=== PATIENT | female | born 1980 | race Caucasian/White ===

== ENCOUNTER 2016-10-02 04:12 | Inpatient (IN) | payer OTHER ==
--- NOTE | ~2016-10-02 | PN ---
Unit #: [id number] #: [id number] Patient: DREW SHEPPARD [id number] [facility] [address] [place] [address] [id number] MR#: [id number] NAME: DREW SHEPPARD ROOM: P208 Age: 36 Sex: F Admission Date: 10/02/2016 : 1980 Attending Physician: Mehdi Aiken M.D. Admitting Physician: Mehdi Aiken M.D. Primary Care Physician: Abhi Richardson PROGRESS NOTES DATE OF SERVICE: 10/03/2016 DISCUSSION The patient continues to complain of some anxiety and depression, but is better today. She slept well last night. Has a good appetite. She is alert and fully oriented. Her memory and concentration are intact. Her thought processes are logical with no psychosis. She is equivocal about suicidal ideation today. ASSESSMENT Major depression, substance abuse. PLAN We will continue with new medications and detox protocol, anticipate discharge soon. Dictated by... Abhi Hayden/romina TD: 10/04/2016 01:35 JOB #: [id number] NABIL PROGRESS NOTES Page 1 of 1 X Mehdi Aiken MD PROGRESS NOTE
--- NOTE | ~2016-10-02 | HP ---
Unit #: [id number] #: [id number] Patient: LISSETH SHEPPARD [id number] [place] [address] [id number] MR#: [id number] NAME: LISSETH SHEPPARD ROOM: P208 Age: 36 Sex: F Admission Date: 10/02/2016 : 1980 Attending Physician: Mehdi Aiken M.D. Admitting Physician: Mehdi Aiken M.D. Primary Care Physician: Herrera Samano M.D. HISTORY AND PHYSICAL HISTORY OF PRESENT ILLNESS Lisseth is a 36 year old admitted to [address] [place] [address] because of her continued drug use. She shoots heroin. PAST MEDICAL HISTORY 1. Long history of opioid abuse to include IV heroin 2. Hepatitis C PAST SURGICAL HISTORY Tubal ligation. ALLERGIES No known drug allergies. SOCIAL HISTORY Smokes one pack per day. Denies alcohol. Admits to a long history of opioid abuse to include IV heroin. FAMILY HISTORY Medically noncontributory. REVIEW OF SYSTEMS CONSTITUTIONAL: No fever or chills. HEENT: Denies any sore throat, ear pain or runny nose. CARDIOVASCULAR: Denies chest pain, irregular heart rhythm or palpitations. CHEST: Denies shortness of breath or cough. No hemoptysis. GASTROINTESTINAL: Denies nausea, vomiting, diarrhea or chronic constipation. ENDOCRINE: Denies history of increased thirst or urination. No recent significant weight loss or gain. GENITOURINARY: Denies dysuria, frequency, or hematuria. SKIN: Denies any rashes. HEMATOLOGIC: Denies history of increased bleeding or bruising. MUSCULOSKELETAL: Denies any hot, swollen joints. No generalized muscle pain. NEUROLOGIC: Denies problems with vision or speech. No frequent, severe headaches. No numbness, tingling or weakness in any extremities. Denies loss of bladder or bowel control. CURRENT MEDICATIONS 1. Detox protocol Unit #: [id number] #: [id number] Patient: LISSETH SHEPPARD 2. Celexa 20 mg daily PHYSICAL EXAMINATION GENERAL: Alert, well-nourished, in no apparent distress. VITAL SIGNS: Blood pressure 100/62, heart rate 80, respirations 16, temperature 98.6. WEIGHT: 148 pounds. HEIGHT: 5'6". SKIN: Warm and dry without rash or lesion. HEENT: Normocephalic. TMs not viewed. Oral and nasal passages clear. Conjunctivae clear. Pupils equal, round and reactive to light and accommodation. Extraocular movements intact. NECK: Supple without lymphadenopathy or thyromegaly. HEART: Regular rate and rhythm without murmur. LUNGS: Clear. ABDOMEN: Soft, nontender. : Not done. EXTREMITIES: No evidence of cyanosis, clubbing or edema. Moves all extremities without focal deficit. NEUROLOGICAL: Grossly within normal limits. Cranial Nerves: II: Visual farias are intact. III, IV AND : Extraocular movements are intact. Pupils are equal, round and reactive to light. V: Facial sensation is grossly normal. VII: Facial movements and expression are normal. VIII: Auditory acuity grossly intact. IX, X: Uvula is midline. Phonation is normal. XI: Patient shrugs shoulders and turns head normally. XII: Tongue protrudes in the midline. Sensory and Motor Function: Sensory and motor sensation is grossly normal. Motor: moves all extremities well. Coordination: Gait is normal. Deep Tendon Reflexes: Intact. IMPRESSION Psychiatric admission RECOMMENDATIONS PSYCHIATRIC: Per psychiatrist. MEDICAL: I see no contraindications to participating in facility's activities. MEDICAL PROGNOSIS Good. MEDICAL CONDITION Stable. Dictated by... Ruth Marmolejo PMukundA.-C. for Abhi Chester/maciel TD: 10/02/2016 23:44 JOB #: [id number] Unit #: [id number] #: [id number] Patient: LISSETH SHEPPARD HISTORY AND PHYSICAL Page 1 of 1 X Ruth Marmolejo HISTORY AND PHYSICAL
--- NOTE | ~2016-10-02 | PA ---
Unit #: [id number] #: [id number] Patient: LISSETH SHEPPARD [id number] [place] [address] [id number] MR#: [id number] NAME: LISSETH SHEPPARD ROOM: P208 Age: 36 Sex: F Admission Date: 10/02/2016 : 1980 Date of Assessment: 10/02/2016 Attending Physician: Mehdi Aiken M.D. Admitting Physician: Mehdi Aiken M.D. Primary Care Physician: Herrera Samano M.D. PSYCHIATRIC ASSESSMENT INFORMANTS Patient, reliable; OLOP, reliable. CHIEF COMPLAINT Suicidal ideation and IV heroin use. HISTORY OF PRESENT ILLNESS Lisseth Sheppard is a 36-year-old woman, who reports using 0.5 g of heroin occasionally with benzodiazepines and cocaine today. She had suicidal ideation with a plan to overdose and could not contract for safety. She was admitted for stabilization. PAST PSYCHIATRIC HISTORY Last admission in this facility was in 02/2016. She has also had treatment at [facility] and other outpatient facilities. FAMILY PSYCHIATRIC HISTORY The patient's father was an alcoholic. Her aunt suffered from depression, bipolar disorder, and substance abuse. SOCIAL HISTORY The patient denied any history of childhood abuse or neglect. She is a heterosexual woman with a boyfriend. She has had previous drug charges. She is erratically housed and employed. PAST MEDICAL HISTORY No chronic medical problems. MEDICATIONS None currently. ALLERGIES No known medication allergies. SUBSTANCE USE HISTORY As noted, the patient has a long history of polysubstance dependence, with multiple treatment episodes. MENTAL STATUS EXAMINATION The patient presented as a disheveled woman, who appeared her stated age. She stood 5 feet 6 inches tall, weighed 148 pounds. Vital signs were temperature 98.6, pulse 75, respirations 18, and blood pressure 142/94. Her speech was spontaneous and easily understood. Her musculoskeletal Unit #: [id number] #: [id number] Patient: LISESTH SHEPPARD examination was calm. Her mood was anxious with a congruent affect. She was alert and fully oriented. Her memory and concentration were fair. Her thought processes were goal directed with no active psychosis. She now denied suicidal ideation, intent, or plan. Insight and judgment, fair. Fund of knowledge and abstraction, fair. ASSETS AND LIABILITIES The patient knows local resources and presents voluntarily for treatment. Liabilities include difficulty maintaining sobriety, ongoing issues with depression. ADMITTING DIAGNOSES AXIS I: 1. Opioid dependence with withdrawal, uncomplicated, F11.23. 2. Major depressive disorder. AXIS II: No diagnosis. AXIS III: Opioid withdrawal. AXIS IV: AXIS V: PSYCHIATRIC PLAN The patient was admitted and placed on suicide precautions and the opioid detox protocol. Citalopram 20 mg daily for depression will be provided with trazodone 50 mg at bedtime as needed for insomnia. She will enroll in dual diagnosis groups and activities and physical examination and laboratory studies will be ordered and reviewed. TREATMENT GOALS Resolution of SI, improvement in insight, and improvement in coping skills. DISCHARGE PLAN Follow up with community mental health and primary care physician. ESTIMATED LENGTH OF STAY 5 days. Dictated by... Mehdi Aiken M.D. LILY/romina TD: 10/09/2016 03:09 JOB #: [id number] PSYCHIATRIC ASSESSMENT Page 1 of 1 X Mehdi Aiken MD PSYCHIATRIC ASSESSMENT
--- NOTE | ~2016-10-02 | DS ---
Unit #: [id number] #: [id number] Patient: LISSETH SHEPPARD [id number] [facility] [address] [place] [address] [id number] MR#: [id number] NAME: LISSETH SHEPPARD ROOM: P208 Age: 36 Sex: F Admission Date: 10/02/2016 : 1980 Discharge Date: 10/04/2016 Attending Physician: Mehdi Aiken M.D. Primary Care Physician: Herrera Samano M.D. DISCHARGE SUMMARY REASON FOR ADMISSION Lisseth is a 36-year-old woman who came in with complaints of depression, anxiety, and the use of benzodiazepines, heroin, and cocaine. She cannot contract for safety and was admitted for stabilization. HOSPITAL COURSE The patient was admitted and placed on the opioid detox protocol and suicide precautions. Citalopram 20 mg daily for depression with trazodone 50 mg at bedtime was added. She tolerated these medications well with good sleep and reduced detox symptomatology. The following day, she was able to contract for safety in the outpatient setting. DISCHARGE DIAGNOSES AXIS I: Opiate dependence with withdrawal, uncomplicated, major depressive disorder. AXIS II: No diagnosis. AXIS III: Opioid withdrawal syndrome. AXIS IV: AXIS V: DISCHARGE INSTRUCTIONS The patient is to follow up with [facility] for chemical dependence and psychiatric care. DISCHARGE MEDICATIONS Celexa 20 mg daily for depression, trazodone 50 mg at bedtime as needed for insomnia. CONDITION AT DISCHARGE Fair. PROGNOSIS Fair. DIET AND ACTIVITY Ad higinio. Dictated by... Mehdi Aiken M.D. [facility] Unit #: [id number] #: [id number] Patient: LISSETH SHEPPARD TD: 12/01/2016 00:24 JOB #: [id number] DISCHARGE SUMMARY Page 1 of 1 X Mehdi Aiken MD X DISCHARGE SUMMARY
[~2016-10-02 04:12] MED LIST: ABILIFY5 MG PO; ADDERALL 30 MG30 M1 PO; AMOXICILLIN PO; BACTRIM DS TABL1 TA1 PO; CATAPRES0.1 MG PO; KEFLEX500 MG PO; LAMICTAL; LAMICTAL150 MG PO; LEXAPRO; LEXAPRO20 MG PO; RISPERDAL1 M1 PO
[2016-10-02 09:48] LABS: BASOPHIL% 0.5 % (0-2.5); EOSINOPHIL# 0.1 X10e3 (0-0.7); EOSINOPHIL% 2.4 % (0.0-7.0); HEMATOCRIT 33.6 % (35.0-45.0); HEMOGLOBIN 11.6 gm/dL (12.0-16.0); LYMPHOCYTE% 37.3 % (17.0-45.0); MEAN CELL VOLUME 88.6 FL (83-96); MEAN CORPUSCULAR HEMOGLOBIN 30.6 PG (28-34); MEAN CORPUSCULAR HGB CONC 34.5 g/dL (30-36); MEAN PLATELET VOLUME 8.6 FL (6.5-11.5); MONOCYTE# 0.5 X10e3 (0-1.0); MONOCYTE% 9.8 % (3.0-12.0); NEUTROPHIL# 2.7 X10e3 (1.5-7.1); PLATELET COUNT 182 X10e3 (140-420); RED BLOOD COUNT 3.79 X10e (3.90-5.30); RED CELL DISTRIBUTION WIDTH 12.8 % (11.0-15.5); WHITE BLOOD COUNT 5.3 X10e3 (4.0-10.5)
[2016-10-02 09:49] LABS: DIFF IND NO
[2016-10-02 10:07] LABS: THYROID STIMULATING HORMONE 4.75 uIU/ml (0.34-5.60)
[2016-10-02 10:15] LABS: FREE THYROXIN (T4) 1.05 ng/dL (0.58-1.64)
[2016-10-02 10:19] LABS: ALBUMIN SERUM 3.4 g/dL (3.5-5.0); BILIRUBIN,TOTAL 0.5 mg/dL (0.2-2.0); CALCIUM SERUM 9.2 mg/dL (8.4-10.2); CREATININE SERUM 0.5 mg/dL (0.6-1.4); GLOM FILT RATE Estimated 126.3 mL/min (>60); POTASSIUM 3.4 mmol/L (3.5-5.1); PROTEIN TOTAL SERUM 5.7 g/dL (6.0-8.3)
== END 2016-10-04 17:05 | DRG 881 ==
LOC: P2S 04:12
PROVIDERS: Psychiatry & Neurology Psychiatry
PROC: HZ2ZZZZ Detoxification Services for Substance Abuse Treatment (ICD-10-PCS; principal; 2016-10-02)
DX: F32.9 Major depressive disorder, single episode, unspecified (principal); R45.851 Suicidal ideations; F19.10 Other psychoactive substance abuse, uncomplicated; B19.20 Unspecified viral hepatitis C without hepatic coma; F17.200 Nicotine dependence, unspecified, uncomplicated; R41.9 Unspecified symptoms and signs involving cognitive functions and awareness
CPT/HCPCS: 80053; 82150; 83690; 84439; 84443; 85025; 86592